=== PATIENT | male | born 1960 | race African-American/Black ===

== ENCOUNTER 2024-08-01 06:13 | Inpatient (IN) | payer SELFPAY ==
[~2024-08-01] VITALS: Ht 182.9 cm; Wt 83.9 kg
[2024-08-01 06:17] VITALS: O2SAT 100
[2024-08-01] MEDS: MORPHINE SULFATE 4 MG/ML INJ (FOR IV/IM USE) IV STA (07:07)
[2024-08-01 07:14] LABS: HEMATOCRIT. 38.6 % (42.0-52.0); HEMOGLOBIN. 12.2 g/dL (14.0-18.0); MEAN CORPUSCULAR HEMOGLOBIN 27.7 pg (28.0-32.0); MEAN CORPUSCULAR HGB CONC 31.5 g/dL (31.0-37.0); MEAN CORPUSCULAR VOLUME 87.8 fL (80.0-94.0); MEAN PLATELET VOLUME 8.7 fl (7.4-10.4); PLATELET 205 x1000/uL (130-400); RED CELL DISTRIBUTION WIDTH 14.5 % (11.6-14.6); WHITE BLOOD COUNT 3.1 x1000/uL (4.5-11.0)
[2024-08-01 07:21] LABS: DIFFERENTIAL COMMENT 1
[2024-08-01 07:22] LABS: CHLORIDE 104 mEq/L (98-107); POTASSIUM 4.1 mEq/L (3.5-5.1); SODIUM 139 mEq/L (136-145)
[2024-08-01 07:23] LABS: CARBON DIOXIDE 28 mEq/L (21-32)
[2024-08-01 07:24] LABS: CALCIUM 8.7 mg/dL (8.7-10.4)
[2024-08-01 07:28] LABS: CREATININE 0.5 mg/dL (0.6-1.3)
[2024-08-01 07:29] LABS: GLUCOSE 88 mg/dL (70-105); UREA NITROGEN BLOOD 15 mg/dL (9-23)
[2024-08-01 07:31] LABS: TROPONIN I HIGH SENSITIVITY 14 ng/L (3.0-53)
[2024-08-01] MEDS: HYDRALAZINE 20MG/ML VIAL IV ONE (08:09)
[2024-08-01] MEDS ORDERED: ACETAMINOPHEN 325MG TABLET PO PRN (11:00)
[2024-08-01] MEDS ORDERED: IPRATROPIUM/ALBUTEROL 0.5-3(2.5)MG/3ML NEB HHN PRN (11:00)
[2024-08-01] MEDS ORDERED: ONDANSETRON HCL 4MG/2ML INJ IV PRN (11:00)
[2024-08-01 11:19] LABS: CLARITY URINE CLEAR (CLEAR); COLOR URINE YELLOW (YELLOW); GLUCOSE URINE NEGATIVE (NEGATIVE); KETONES URINE NEGATIVE (NEGATIVE); LEUKOCYTE ESTERASE URINE NEGATIVE (NEGATIVE); NITRITE URINE NEGATIVE (NEGATIVE); OCCULT BLOOD URINE NEGATIVE (NEGATIVE); PH URINE 6.5 (4.5-8.0); PROTEIN URINE NEGATIVE (NEGATIVE)
[2024-08-01 11:50] LABS: CREATINE KINASE 101 IU/L (46-171)
[2024-08-01 11:55] LABS: *AMPHETAMINES SCREEN URINE PRESUMPTIVE POSITIVE (NEGATIVE); *BARBITURATES SCREEN URINE NEGATIVE (NEGATIVE); *BENZODIAZEPINES SCREEN URINE NEGATIVE (NEGATIVE); *COCAINE SCREEN URINE NEGATIVE (NEGATIVE); CANNABINOID URINE SCREEN PRESUMPTIVE POSITIVE (NEGATIVE); ECSTASY MDMA SCREEN URINE NEGATIVE (NEGATIVE); METHADONE URINE SCREEN NEGATIVE (NEGATIVE); OPIATES URINE SCREEN PRESUMPTIVE POSITIVE (NEGATIVE); PHENCYCLIDINE URINE SCREEN NEGATIVE (NEGATIVE)
[2024-08-01] MEDS: SODIUM CHLORIDE 0.9% 1,000 ML IV SCH (12:02)
[2024-08-01 12:45] LABS: PLATELET ESTIMATE NORMAL
[2024-08-01 14:35] VITALS: BP 151/99; PULSE 94; RESP 16; TEMP 36.7; O2SAT 98
[2024-08-01 16:00] VITALS: BP 155/113; PULSE 94; RESP 18; TEMP 36.8; O2SAT 98
[2024-08-01] MEDS ORDERED: PNEUMOCOCCAL 20-VAL CONJ-DIP CRM 0.5ML IM ONE (16:45)
[2024-08-01] MEDS ORDERED: INFLUENZA VACCINE 05/PF 0.5 ML SYRINGE IM ONE (16:45)
[2024-08-01] MEDS ORDERED: HYDRALAZINE 20MG/ML VIAL IV PRN (17:30)
[2024-08-01] MEDS: LIDOCAINE 5% PATCH TOP SCH (18:15)
[2024-08-01] MEDS: AMLODIPINE 10MG TABLET PO NR (18:15)
[2024-08-01] MEDS: IBUPROFEN 400MG TABLET PO PRN (18:20)
[2024-08-01 20:00] VITALS: BP 141/87; PULSE 95; RESP 16; TEMP 36.8; O2SAT 98
[2024-08-02] VITALS: BP 156/108; PULSE 79; RESP 17; TEMP 36.4; O2SAT 99
[2024-08-02 04:00] VITALS: BP 143/84; PULSE 105; RESP 16; TEMP 36.6; O2SAT 97
[2024-08-02 08:00] VITALS: BP 135/53; PULSE 93; RESP 19; TEMP 36.8; O2SAT 96
[2024-08-02] MEDS: LOSARTAN 25 MG TABLET PO SCH (09:00)
[2024-08-02] MEDS ORDERED: LORAZEPAM 2MG/ML INJ IV PRN (10:00)
[2024-08-02 12:00] VITALS: BP 163/88; PULSE 89; RESP 15; TEMP 36.4; O2SAT 99
[2024-08-02] MEDS: CLONIDINE 0.1MG TABLET PO PRN (12:44)
[2024-08-02] MEDS: PANTOPRAZOLE SODIUM 40 MG/VIAL IV SCH (13:58)
[2024-08-02] MEDS: FOLIC ACID 1 MG, THIAMINE HCL 100 MG, MVI, ADULT NO.1 10 ML in DEXTROSE 5% WATER 1,000 ML IV NR (13:59)
[2024-08-02 16:00] VITALS: BP 148/97; PULSE 83; RESP 15; TEMP 37; O2SAT 98
[2024-08-02 18:01] LABS: BASOPHILS % 1.5 % (0.0-2.0); DIFFERENTIAL COMMENT 0; EOSINOPHILS % 8.6 % (0.0-5.0); HEMATOCRIT. 38.8 % (42.0-52.0); HEMOGLOBIN. 12.4 g/dL (14.0-18.0); LYMPHOCYTES % 26.6 % (20.0-50.0); MEAN CORPUSCULAR HEMOGLOBIN 27.6 pg (28.0-32.0); MEAN CORPUSCULAR HGB CONC 31.9 g/dL (31.0-37.0); MEAN CORPUSCULAR VOLUME 86.5 fL (80.0-94.0); MEAN PLATELET VOLUME 8.6 fl (7.4-10.4); MONOCYTES % 10.1 % (2.0-8.0); NEUTROPHILS % 53.2 % (40.0-76.0); PLATELET 206 x1000/uL (130-400); RED BLOOD CELL COUNT 4.48 mill/uL (4.7-6.1); RED CELL DISTRIBUTION WIDTH 14.3 % (11.6-14.6); WHITE BLOOD COUNT 3.6 x1000/uL (4.5-11.0)
[2024-08-02 18:18] LABS: CARBON DIOXIDE 26 mEq/L (21-32); CHLORIDE 101 mEq/L (98-107); POTASSIUM 3.8 mEq/L (3.5-5.1); SODIUM 135 mEq/L (136-145)
[2024-08-02 18:19] LABS: CALCIUM 9.2 mg/dL (8.7-10.4)
[2024-08-02 18:23] LABS: CREATININE 0.7 mg/dL (0.6-1.3); GLUCOSE 119 mg/dL (70-105); THYROID STIMULATING HORMONE 0.36 uIU/mL (0.55-4.78)
[2024-08-02 18:24] LABS: TRIGLYCERIDE 99 mg/dL (0-150); UREA NITROGEN BLOOD 12 mg/dL (9-23)
[2024-08-02 18:25] LABS: ALANINE AMINOTRANSFERASE 18 IU/L (10-49); ALBUMIN 3.5 g/dL (3.2-4.8); ASPARTATE AMINOTRANSFERASE 26 IU/L (<34); CHOLESTEROL 114 mg/dL (<200); LDL CHOLESTEROL 59 mg/dL (5-100)
[2024-08-02 18:26] LABS: BILIRUBIN DIRECT 0.2 mg/dL (<=3.0); BILIRUBIN TOTAL 0.6 mg/dL (0.1-1.0); HDL CHOLESTEROL 34 mg/dL (>55); PHOSPHORUS 3.2 mg/dL (2.5-4.9); PROTEIN TOTAL 7.5 g/dL (6.0-8.3)
[2024-08-02 18:27] LABS: T4 FREE 0.94 ng/dL (0.89-1.76)
[2024-08-02 18:33] LABS: ETHANOL BLOOD < 10 mg/dL (<10)
[2024-08-02 18:34] LABS: HEPATITIS B SURFACE ANTIGEN NEGATIVE (Negative)
[2024-08-02 18:55] LABS: HEPATITIS C AB REACTIVE (Pos) (Negative)
[2024-08-02 20:00] VITALS: BP 128/78; PULSE 94; RESP 16; TEMP 36.6; O2SAT 99
[2024-08-03] VITALS: BP 158/102; PULSE 93; RESP 19; TEMP 36.2; O2SAT 96
[2024-08-03 04:00] VITALS: BP 152/100; PULSE 73; RESP 18; TEMP 36.2; O2SAT 99
[2024-08-03 08:00] VITALS: BP 157/106; PULSE 83; RESP 16; TEMP 36.9; O2SAT 97
[2024-08-03] MEDS: THIAMINE HCL 100MG TABLET PO SCH (08:39)
[2024-08-03] MEDS: AMLODIPINE 5MG TABLET PO SCH (08:39)
[2024-08-03 11:42] LABS: BASOPHILS % 1.5 % (0.0-2.0); DIFFERENTIAL COMMENT 0; HEMATOCRIT. 40.4 % (42.0-52.0); HEMOGLOBIN. 12.8 g/dL (14.0-18.0); LYMPHOCYTES % 26.5 % (20.0-50.0); MEAN CORPUSCULAR HEMOGLOBIN 27.3 pg (28.0-32.0); MEAN CORPUSCULAR HGB CONC 31.6 g/dL (31.0-37.0); MEAN CORPUSCULAR VOLUME 86.3 fL (80.0-94.0); MONOCYTES % 14.8 % (2.0-8.0); NEUTROPHILS % 45.2 % (40.0-76.0); PLATELET 220 x1000/uL (130-400); RED BLOOD CELL COUNT 4.69 mill/uL (4.7-6.1); RED CELL DISTRIBUTION WIDTH 14.3 % (11.6-14.6); WHITE BLOOD COUNT 3.3 x1000/uL (4.5-11.0)
[2024-08-03 12:00] VITALS: BP 131/81; PULSE 80; RESP 20; TEMP 36.8; O2SAT 99
[2024-08-03 12:10] LABS: CALCIUM 9.2 mg/dL (8.7-10.4); CARBON DIOXIDE 28 mEq/L (21-32); CHLORIDE 101 mEq/L (98-107); SODIUM 135 mEq/L (136-145)
[2024-08-03 12:15] LABS: CREATININE 0.7 mg/dL (0.6-1.3)
[2024-08-03 12:16] LABS: GLUCOSE 107 mg/dL (70-105); UREA NITROGEN BLOOD 13 mg/dL (9-23)
[2024-08-03 12:17] LABS: ALANINE AMINOTRANSFERASE 21 IU/L (10-49); ALBUMIN 3.6 g/dL (3.2-4.8); ASPARTATE AMINOTRANSFERASE 31 IU/L (<34)
[2024-08-03 12:18] LABS: BILIRUBIN DIRECT 0.2 mg/dL (<=3.0); BILIRUBIN TOTAL 0.7 mg/dL (0.1-1.0); PHOSPHORUS 2.8 mg/dL (2.5-4.9); PROTEIN TOTAL 7.7 g/dL (6.0-8.3)
[2024-08-03] MEDS ORDERED: AMLO5TAB88 PO (12:40)
[2024-08-03] MEDS ORDERED: LIDO700A30 TOP (12:40)
[2024-08-03] MEDS ORDERED: LOSA25TA26 PO (12:40)
[2024-08-03] MEDS ORDERED: IBUP-2028 PO (12:40)
[2024-08-03] MEDS ORDERED: THIA100T72 PO (12:40)
[2024-08-03 16:00] VITALS: BP 135/70; PULSE 77; RESP 19; TEMP 36.7; O2SAT 98
[2024-08-03] MEDS: MAGNESIUM 2 G PREMIX 50 ML IV NR (16:07)
[2024-08-03 20:00] VITALS: BP 134/86; PULSE 89; RESP 19; TEMP 36.6; O2SAT 99
[2024-08-04 04:00] VITALS: BP 152/83; PULSE 80; RESP 19; TEMP 36.4; O2SAT 99
[2024-08-04 08:00] VITALS: BP 132/89; PULSE 82; PULSE 85; RESP 18; RESP 20; TEMP 36.2; TEMP 36.3; O2SAT 96; O2SAT 99
[2024-08-04 08:50] VITALS: BP 132/89; RESP 18
== END 2024-08-04 11:22 | disposition left against medical advice (07) | DRG 812 ==
LOC: ER 06:25 → 3WST 07:54 → EDBEDREQTM 08:00 → EDBEDREQ 08:00 → 4WST 08-03 11:55
PROVIDERS: ADMIT Internal Medicine; ATTEND Internal Medicine
DX: T43.621A Poisoning by amphetamines, accidental (unintentional), initial encounter (principal); G92.8 Other toxic encephalopathy; L97.819 Non-pressure chronic ulcer of other part of right lower leg with unspecified severity; I16.0 Hypertensive urgency; R03.0 Elevated blood-pressure reading, without diagnosis of hypertension; G89.29 Other chronic pain; M54.9 Dorsalgia, unspecified; D64.9 Anemia, unspecified; L97.829 Non-pressure chronic ulcer of other part of left lower leg with unspecified severity; B19.20 Unspecified viral hepatitis C without hepatic coma; Z59.00 Homelessness unspecified; Z79.899 Other long term (current) drug therapy; Y92.89 Other specified places as the place of occurrence of the external cause; F15.920 Other stimulant use, unspecified with intoxication, uncomplicated
CPT/HCPCS: 36415; 71045; 72100; 80048; 80061; 80076; 80305; 80320; 81003; 82550; 83036; 83735; 83880; 84100; 84439; 84443; 84484; 85025; 86705; 87340; 93005; 99285; A4606; A6261; J0360; J2270; J2470; J3411; J3475; J3490; J7070; G0480